=== PATIENT | male | born 1990 | race Caucasian/White ===

== ENCOUNTER → 2016-05-29 | Outpatient (CLI) | payer BC ==
[~2016-05-29] MED LIST: ANTIVERT25 MG PO; CLARITIN-D 121 EACH PO; FLEXERIL10 MG PO; HYDROCODON-ACE1 EAC7 PO; NO HOME MED
== END | disposition home or self-care (01) ==
LOC: NUC 06:55
DX: R10.9 Unspecified abdominal pain (principal); K82.9 Disease of gallbladder, unspecified
CPT/HCPCS: 78227; A9537; J2805